=== PATIENT | female | born 1995 | race Caucasian/White ===

== ENCOUNTER 2019-02-17 11:27 | Emergency (ER) | payer OTHER ==
[~2019-02-17 11:27] MED LIST: Iopamidol 370 76% 100 ML VIAL ONE
[2019-02-17 12:35] LABS: #Lymphocytes 1.6 thou/uL (1.20-3.40); #Monocytes 0.5 thou/uL (0.11-0.59); #Neutrophils 5.2 thou/uL (1.40-6.50); %Basophils 0.1 % (0.0-1.0); %Eosinophils 0.3 % (0.0-10.0); %Lymphocytes 21.9 % (21.0-51.0); %Monocytes 7.3 % (0.0-10.0); %Neutrophils 70.4 % (42.0-75.0); Hemoglobin 11.3 g/dL (12.0-16.0); Mean Corpuscular HGB CONC 34.9 g/dL (32.0-36.0); Mean Corpuscular Volume 88.8 fL (78.0-98.0); Mean Platelet Volume 8.1 fL (7.4-10.4); Platelet Count 264 thou/uL (130-400); RBC Distribution Width 12.1 % (11.5-14.5); Red Blood Cell (RBC) Count 3.65 mill/uL (4.20-5.40); White Blood Cell (WBC) Count 7.4 thou/uL (4.8-10.8)
--- NOTE | 2019-02-17 12:46 | RAD ---
Exam: Chest one view HISTORY:Chest pain Comparison: None FINDINGS: Cardiac silhouette: Normal Aorta: Unremarkable Pulmonary vessels: Normal Costophrenic angles: Clear LUNGS: No masses or consolidation. Pneumothorax: None Osseous abnormalities: None IMPRESSION: No acute cardiopulmonary process.
[2019-02-17 12:57] LABS: ALT (SGPT) 19 U/L (8-55); AST (SGOT) 16 U/L (5-34); Albumin 3.7 g/dL (3.5-5.0); Alkaline Phosphatase 52 U/L (40-150); Anion Gap 12 mmol/L (10-20); BUN (Urea Nitrogen) 5 mg/dL (7.0-18.7); Bilirubin, Total 0.3 mg/dL (0.2-1.2); CK (CPK) 27 U/L (29-168); Calc. Creatinine Clearance 0 mL/min (70-130); Carbon Dioxide 20 mmol/L (22-29); Chloride 108 mmol/L (98-107); Estimated GFR-MDRD Greater than 90; Globulin 2.4 g/dL (2.4-3.5); Glucose 83 mg/dL (70-105); Lipase 17 U/L (8-78); Potassium 3.8 mmol/L (3.5-5.1); Protein, Total 6.1 g/dL (6.0-8.3); Sodium 136 mmol/L (136-145)
[2019-02-17 13:15] LABS: Bilirubin Negative (Negative); Blood, Urine Negative (Negative); Clarity Clear (Clear); Glucose, Urine (Dipstick) Normal (Negative); Leukocyte Negative Leu/uL (Negative); Nitrite Negative (Negative); Protein, Urine (Dipstick) 10 mg/dL (Neg-Trace)
--- NOTE | 2019-02-17 13:27 | CT ---
Exam: CT angiogram of the chest HISTORY: Hypertension. Tachycardia. Chest pain. COMPARISON: None TECHNIQUE: CT angiogram of the chest is performed in the axial plane. Three-dimensional reformatted i mages are submitted for interpretation FINDINGS: Mediastinum: No mass, lymphadenopathy or hematoma. HEART: Normal size. No significant pericardial fluid. Aorta: No aneurysm or dissection Upper solid abdominal viscera: No abnormality enhancement. Trachea and central bronchi: Patent Pleural spaces: No effusion Lung parenchyma: No masses or consolidation. Pneumothorax: None Osseous structures: No lytic or blastic lesions Pulmonary arteries: Adequate contrast opacification pulmonary arterial system to the level of the lob ar arteries. Limited evaluation the segmental and subsegmental arteries due to timing of contrast bolus. No filling defect to suggest pulmonary embolism IMPRESSION: 1. No evidence of pulmonary artery embolism to the level of the lobar arteries.
--- NOTE | 2019-02-18 13:44 | EKG ---
Test Reason : Blood Pressure : / mmHG Vent. Rate : 124 BPM Atrial Rate : 124 BPM P-R Int : 128 ms QRS Dur : 080 ms QT Int : 320 ms P-R-T Axes : 025 006 007 degrees QTc Int : 459 ms Sinus tachycardia Cannot rule out Anterior infarct , age undetermined Abnormal ECG Confirmed by SUKHDEV HEALY, MASOUD ([id number]), editorial cartoonist NAINA MAN ([id number]) on 02/18/2019 1:43:24 PM Referred By: Confirmed By:MASOUD SANTIZO MD
== END 2019-02-17 13:57 | disposition home or self-care (01) ==
LOC: ERS 11:27 → EDSTATUS 11:32 → ERS 13:57
DX: O99.89 Other specified diseases and conditions complicating pregnancy, childbirth and the puerperium (principal); R00.0 Tachycardia, unspecified; O99.282 Endocrine, nutritional and metabolic diseases complicating pregnancy, second trimester; E86.0 Dehydration; Z3A.23 23 weeks gestation of pregnancy
CPT/HCPCS: 36415; 71045; 71275; 80053; 81003; 82550; 83690; 84484; 85025; 85379; 93005; 96360; Q9967

== ENCOUNTER 2019-05-19 10:13 | Inpatient (IN) | payer OTHER ==
[2019-05-19] MEDS ORDERED: Bupivacaine 0.25% 10 ML VIAL ONE (13:11)
[2019-05-19] MEDS ORDERED: Sodium Chloride 0.9% (PF) 10 ML VIAL ONE (13:11)
[2019-05-19 18:44] VITALS: BMI 43.2
[2019-05-19] MEDS ORDERED: Promethazine HCl 25 MG/ML VIAL IM PRN (18:51)
[2019-05-19] MEDS ORDERED: Lidocaine 1% (PF) 30 ML VIAL SC PRN (18:51)
[2019-05-19] MEDS ORDERED: Butorphanol Tartrate 1 MG/ML VIAL SLOW IVP PRN (18:51)
[2019-05-19] MEDS ORDERED: Ibuprofen 800 MG TAB PO PRN (18:51)
[2019-05-19] MEDS ORDERED: hydrALAZINE 20 MG/ML VIAL SLOW IVP PRN (18:51)
[2019-05-19] MEDS ORDERED: Carboprost 250 MCG/ML AMP IM PRN (18:51)
[2019-05-19] MEDS ORDERED: NS / Oxytocin 40 units/1000ml 1,000 ML IV PRN (18:51)
[2019-05-19] MEDS ORDERED: Misoprostol 200 MCG TAB PR PRN (18:51)
[2019-05-19] MEDS ORDERED: Ondansetron PF 4 MG/2 ML Vial IVP PRN (18:51)
[2019-05-19] MEDS ORDERED: HYDROcodone/Acetaminophen 5/325 mg Tablet PO PRN ×2 (18:51)
[2019-05-19] MEDS ORDERED: Diphenoxylate HCl/Atropine Tablet PO PRN ×2 (18:51)
[2019-05-19 19:02] LABS: Hemoglobin 11.9 g/dL (12.0-16.0); Mean Corpuscular HGB CONC 35.4 g/dL (32.0-36.0); Mean Corpuscular Volume 87.4 fL (78.0-98.0); Mean Platelet Volume 8.2 fL (7.4-10.4); Platelet Count 271 thou/uL (130-400); RBC Distribution Width 13.6 % (11.5-14.5); Red Blood Cell (RBC) Count 3.84 mill/uL (4.20-5.40); White Blood Cell (WBC) Count 10.7 thou/uL (4.8-10.8)
[2019-05-19] MEDS: Misoprostol 100 MCG TAB PO SCH ×2 (19:30→23:00)
[2019-05-19 19:38] LABS: ALT (SGPT) 25 U/L (8-55); AST (SGOT) 17 U/L (5-34); Albumin 3.4 g/dL (3.5-5.0); Alkaline Phosphatase 113 U/L (40-110); Anion Gap 13 mmol/L (10-20); BUN (Urea Nitrogen) 8 mg/dL (7.0-18.7); Bilirubin, Total 0.2 mg/dL (0.2-1.2); Calc. Creatinine Clearance 269 mL/min (70-130); Calcium 9.1 mg/dL (7.8-10.44); Carbon Dioxide 20 mmol/L (22-29); Chloride 109 mmol/L (98-107); Estimated GFR-MDRD Greater than 90; Globulin 2.7 g/dL (2.4-3.5); Glucose 129 mg/dL (70-105); Potassium 4.2 mmol/L (3.5-5.1); Protein, Total 6.1 g/dL (6.0-8.3); Sodium 138 mmol/L (136-145)
[2019-05-19 19:39] LABS: Syphilis Antibody Nonreactive (Nonreactive); Syphilis Antibody Index 0.03 S/CO (<1.00 Non-Reactive)
[2019-05-19 19:40] LABS: HBSAg Index 0.16 S/CO (0-0.99); Hep B Surf Ag Non-Reactive S/CO (NonReactive)
[2019-05-20 08:51] LABS: Creatinine, Urine 110.92 mg/dL (47-110)
--- NOTE | 2019-05-20 10:38 | PDOC.LDHP ---
Labor and Delivery H&P Chief complaint: scheduled induction HPI: Here for scheduled IOL for GHTN. Blood pressures at home have been 150-160 and 90-100. In office 140/70s. Patient denies ZULETA, RUQ pain, and vision changes. Current gestational age (weeks): 37 Grav: 2 Para: 1 Current complications: gestational hypertension Current medications: none Allergies/Adverse Reactions: Allergies Allergy/AdvReac Type Severity Reaction Status Date / Time carboprost [From Hemabate] Allergy Mild Verified 05/21/19 13:54 Social history: none - Physical Exam Vital signs reviewed and normal: yes General: resting Lungs: nonlabored breathing Abdomen: gravid Extremeties: trace edema FHT: category 1 - Vaginal Exam cm dilated: 1 Effacement: 25% Station: -3 - OB Labs Blood type: A RH: positive Antibody Screen: negative HIV: negative RPR: negative HEPSAg: negative 1 hour GCT: negative GBS: negative Urine drug screen: negative Rubella: immune - Assessment L&D Assessment: medically indicated induction (for GHTN Cervical ripening with cytotec followed by balloon placement Pitocin for augmentation)
[2019-05-20] MEDS: NS w/ Oxytocin 10 units 500 ML IV SCH (11:23)
[2019-05-20] MEDS ORDERED: Acetaminophen 325 MG TAB PO PRN ×2 (13:13→20:30)
[2019-05-20] MEDS: Lactated Ringer's 1,000 ML IV SCH ×2 (16:07→20:20)
[2019-05-20] MEDS ORDERED: Fentanyl 4 mcg/Bup 0.1% Cadd 100 ML ONE (19:29)
[2019-05-20] MEDS ORDERED: Fentanyl 4 mcg/Bupivacaine 0.1% Cassette 100 ML EPIDURAL SCH (20:30)
[2019-05-20] MEDS ORDERED: Communication Order-Pharmacy FS SCH (20:30)
[2019-05-20] MEDS ORDERED: Ondansetron PF 4 MG/2 ML Vial IVP PRN (20:30)
[2019-05-20] MEDS ORDERED: Promethazine HCl 25 MG/ML VIAL IM PRN (20:30)
[2019-05-20] MEDS ORDERED: Lactated Ringer's 500 ML IV PRN (20:30)
[2019-05-20] MEDS ORDERED: ePHEDrine/0.9% NaCl/PF SYRINGE 50 mg/10 ml SLOW IVP PRN (20:30)
[2019-05-20] MEDS ORDERED: diphenhydrAMINE 50 MG/ML VIAL IVP PRN (20:30)
[2019-05-20] MEDS ORDERED: Naloxone HCl 0.4 mg/ml Vial IVP PRN ×2 (20:30)
[2019-05-21] MEDS: Lactated Ringer's 1,000 ML IV SCH ×2 (00:28→05:49)
[2019-05-21] MEDS ORDERED: Carboprost 250 MCG/ML AMP ONE (03:32)
[2019-05-21] MEDS ORDERED: Misoprostol 200 MCG TAB ONE (03:32)
[2019-05-21] MEDS ORDERED: Butorphanol Tartrate 1 MG/ML VIAL ONE ×2 (03:38→03:39)
--- NOTE | 2019-05-21 03:57 | PDOC.OPDEL ---
OB Operative/Delivery Note Delivery Dr/Surgeon: Eva Abbott CNM Assist: Dr. Betsy Bone Pre-Delivery Diagnosis: active labor, medically indicated induction Procedure/Post Delivery Dx: spontaneous vaginal delivery Weeks gestation: 37 Anesthesia: epidural - Findings A Sex: female Weight: 8 lb 5 oz - 1 min: 9 - 5 min: 9 - Additional Findings/Plan Placenta delivered: manual removal (I attempted a manual removal of the placenta and was unsuccessful. 2mg Stadol given for maternal comfort. Dr. Bone assisted to manually remove placenta) Repaired Obstetrical Laceration: none Estimated blood loss: 300mL Compilations/Other Findings: Retained placenta > 30 mins. Manual removal by Dr. Bone placenta to pathology. Hemabate given Post delivery plan: routine recovery (Ancef 2gm. Placenta to pathology)
[2019-05-21] MEDS ORDERED: CEFAZOLIN 2 GM in Premix Bag 1 BAG IVPB SCH (04:00)
[2019-05-21] MEDS: Misoprostol 100 MCG TAB PO SCH ×2 (05:48→05:49)
[2019-05-21] MEDS: NS w/ Oxytocin 10 units 500 ML IV SCH (05:50)
[2019-05-21] MEDS ORDERED: Benzocaine-Menthol 82.5 ML CAN TOP PRN (05:56)
[2019-05-21] MEDS ORDERED: Misoprostol 200 MCG TAB VAG PRN (05:56)
[2019-05-21] MEDS ORDERED: HYDROcodone/Acetaminophen 5/325 mg Tablet PO PRN ×2 (05:56)
[2019-05-21] MEDS ORDERED: hydrALAZINE 20 MG/ML VIAL SLOW IVP PRN (05:56)
[2019-05-21] MEDS ORDERED: Ondansetron PF 4 MG/2 ML Vial IVP PRN (05:56)
[2019-05-21] MEDS ORDERED: NS / Oxytocin 40 units/1000ml 1,000 ML IV SCH (05:56)
[2019-05-21] MEDS ORDERED: Adacel (T-DAP) 0.5 ML SYRINGE IM ONE (05:56)
[2019-05-21] MEDS ORDERED: Milk Of Magnesia 30 ML UDCUP PO PRN (05:56)
[2019-05-21] MEDS ORDERED: Bisacodyl 10 MG SUPP PR PRN (05:56)
[2019-05-21] MEDS ORDERED: Sodium Chloride 0.9% 10 ML ONE (07:55)
[2019-05-21] MEDS: Ibuprofen 800 MG TAB PO SCH ×3 (08:02→21:32)
[2019-05-21] MEDS: Docusate Calcium (SURFAK) 240 MG CAP PO SCH ×2 (08:02→21:33)
[2019-05-21] MEDS: Prenatal Vitamin 1 TAB PO SCH (08:02)
[2019-05-21] MEDS: Ferrous Sulfate 325 MG TAB PO SCH ×2 (08:04→15:08)
[2019-05-22 08:42] VITALS: BP 128/65; TEMP 97.8
[2019-05-22] MEDS: Ibuprofen 800 MG TAB PO SCH (08:51)
[2019-05-22] MEDS: Prenatal Vitamin 1 TAB PO SCH (08:51)
[2019-05-22] MEDS: Ferrous Sulfate 325 MG TAB PO SCH (08:52)
[2019-05-22] MEDS: Docusate Calcium (SURFAK) 240 MG CAP PO SCH (08:53)
== END 2019-05-22 12:33 | disposition home or self-care (01) | DRG 807 ==
LOC: L&D 18:01 → 3SW 05-21 06:47
PROVIDERS: ADMIT Obstetrics & Gynecology; ATTEND Obstetrics & Gynecology
PROC: 10907ZC Drainage of Amniotic Fluid, Therapeutic from Products of Conception, Via Natural or Artificial Opening (ICD-10-PCS; principal; 2019-05-20)
PROC: 10E0XZZ Delivery of Products of Conception, External Approach (ICD-10-PCS; 2019-05-20)
PROC: 3E033VJ Introduction of Other Hormone into Peripheral Vein, Percutaneous Approach (ICD-10-PCS; 2019-05-20)
DX: O13.4 Gestational [pregnancy-induced] hypertension without significant proteinuria, complicating childbirth (principal); Z37.0 Single live birth; Z3A.37 37 weeks gestation of pregnancy; O73.1 Retained portions of placenta and membranes, without hemorrhage
CPT/HCPCS: 51702; 80053; 82570; 84156; 85027; 86780; 86850; 86900; 86901; 87340; 88307; C1726; J0595; J0690; J2590; J3490; S0020

== ENCOUNTER 2019-06-17 15:26 | Observation (INO) | payer OTHER ==
[~2019-06-17 15:26] MED LIST changes: -Iopamidol 370 76% 100 ML VIAL ONE; +Iopamidol-370 76% 500 ML 1 ML ONE
[2019-06-17 16:16] LABS: Band 4 % (5-11); Eosinophils 1 % (0-10); Hemoglobin 14.6 g/dL (12.0-16.0); Lymphocytes 16 % (21-51); MDiff Complete? YES; Mean Corpuscular HGB CONC 34.5 g/dL (32.0-36.0); Mean Corpuscular Hemoglobin 30.5 pg (27.0-31.0); Mean Corpuscular Volume 88.4 fL (78.0-98.0); Mean Platelet Volume 8.6 fL (7.4-10.4); Monocytes 8 % (0-10); Neutrophil 70 % (42-75); Platelet Count 264 thou/uL (130-400); Platelet Morphology Comment Appears Adequate; RBC Distribution Width 12.4 % (11.5-14.5); RBC Morphology Normal; Reactive Lymphocytes 1 % (0-10)
[2019-06-17 16:22] LABS: ALT (SGPT) 74 U/L (8-55); AST (SGOT) 49 U/L (5-34); Albumin 4.3 g/dL (3.5-5.0); Alkaline Phosphatase 89 U/L (40-110); Anion Gap 17 mmol/L (10-20); BUN (Urea Nitrogen) 9 mg/dL (7.0-18.7); Bilirubin, Total 0.5 mg/dL (0.2-1.2); Calc. Creatinine Clearance 0 mL/min (70-130); Calcium 9.8 mg/dL (7.8-10.44); Carbon Dioxide 20 mmol/L (22-29); Chloride 103 mmol/L (98-107); Estimated GFR-MDRD 79; Globulin 3.5 g/dL (2.4-3.5); Glucose 102 mg/dL (70-105); Potassium 4.2 mmol/L (3.5-5.1); Protein, Total 7.8 g/dL (6.0-8.3); Sodium 136 mmol/L (136-145)
--- NOTE | 2019-06-17 16:31 | RAD ---
PORTABLE CHEST: 06/17/19 HISTORY: Chills and fever. Cough. COMPARISON: 02/17/19 study. The heart size and mediastinum are within normal limits. Lungs are clear of any definite infiltrative process. IMPRESSION: No active intrathoracic disease. POS: [facility]
[2019-06-17] MEDS ORDERED: Acetaminophen 500 MG TAB ONE (16:46)
[2019-06-17] MEDS ORDERED: Ibuprofen 200 MG TAB ONE (16:46)
[2019-06-17 17:18] LABS: Bacteria/HPF None Seen HPF (None Seen); Bilirubin Negative (Negative); Blood, Urine Negative (Negative); Clarity Clear (Clear); Glucose, Urine (Dipstick) Normal (Negative); Leukocyte 500 Leu/uL (Negative); Nitrite Negative (Negative); Protein, Urine (Dipstick) 30 mg/dL (Neg-Trace); RBC/HPF 0-3 HPF (0-3)
--- NOTE | 2019-06-17 17:18 | ULT ---
PELVIC ULTRASOUND: 06/17/19 HISTORY: Pelvic pain. Rule out retained produces of conception. Real time imaging of the pelvis was obtained both transabdominally as well as with an endovaginal pro be. These show a uterus measuring 10.6 cm in length. Endometrium does not appear thickened. Measures in the 4 mm range. Slightly indistinct but I see no retained products. The right ovary is well visualized. Shows small follicles. The left ovary is not seen. DOPPLER EVALUATION WITH SPECTRAL ANALYSIS: Normal flow is shown to the right ovary. IMPRESSION: No evidence for retained products. POS: [facility]
[2019-06-17] MEDS ORDERED: Cefepime 2 GM in Sodium Chloride 0.9% 100 ML IVPB ONE (17:30)
[2019-06-17 18:46] LABS: Bilirubin Negative (Negative); Blood, Urine 1+ (Negative); Clarity Clear (Clear); Glucose, Urine (Dipstick) Normal (Negative); Leukocyte 250 Leu/uL (Negative); Nitrite Negative (Negative); Protein, Urine (Dipstick) 30 mg/dL (Neg-Trace); Squamous Epithelial 0-3 HPF (0-3)
[2019-06-17 19:05] LABS: Bacteria/HPF 1+ HPF (None Seen)
[2019-06-17 19:06] LABS: Mucous/LPF 2+ LPF (<2+)
--- NOTE | 2019-06-17 19:24 | ULT ---
LEFT BREAST ULTRASOUND: 06/17/19 HISTORY: Left breast pain. Evaluation for mastitis. The area of pain was in the lateral aspect of the breast. Evaluation was performed from the 2 to 6 o' clock position. Shows no evidence of any fluid collections. Breast tissue appears dense. IMPRESSION: No signs of abscess. POS: [facility]
[2019-06-17] MEDS ORDERED: Cefepime 2 GM VIAL ONE (19:51)
[2019-06-17] MEDS ORDERED: HYDROcodone/Acetaminophen 5/325 mg Tablet PO PRN (20:43)
[2019-06-17] MEDS ORDERED: Senokot S 8.6-50 MG TAB PO PRN (20:43)
[2019-06-17] MEDS ORDERED: Ondansetron PF 4 MG/2 ML Vial IVP PRN (20:43)
[2019-06-17] MEDS ORDERED: Acetaminophen 325 MG TAB PO PRN (20:43)
[2019-06-17] MEDS ORDERED: Diabetic Tussin 200 MG/10 ML UDCUP PO PRN (20:46)
--- NOTE | 2019-06-17 20:49 | PRG ---
DATE OF SERVICE: 06/17/2019 TIME OF EVALUATION: The time of phone consult with the ER nurse practitioner was at 1945 hours. Please label this brief informal consultation by phone. This was a phone informal consult only Requesting consulting provider is the ER nurse practitioner. In brief, I was called regarding Ms. Guerra who is about 14 days and presents with a fever with a temperature of 101.8 and tachycardia. She delivered by [facility] from a vaginal delivery and did not require an episiotomy nor did she have any lacerations by the TRIMMING OPERATOR report. She now presents with nonspecific fever and nonlocalizing symptoms. Initially, the thought by the TRIMMING OPERATOR was that there could be possibly mastitis, but there is absence of breast tenderness, and there is no erythema. I have reviewed the case with the TRIMMING OPERATOR managing this patient. Here is the synopsis: Temperature of 101.8 with some tachycardia. Flu swab was negative. Uterine ultrasound reveals no retained products and the uterine exam/abdominal exam is nonspecific. While there is some left breast engorgement greater than the right side, there is no erythema or tenderness to touch according to the TRIMMING OPERATOR. Chest x- ray was negative. Cath UA showed 1+ bacteria and is concerning for possible UTI. Breast ultrasound did not reveal evidence of abscess. Blood cultures were drawn. The nurse practitioner asked if this is something that gynecology would admit. Based on nonspecific location of the fever, and no clinical signs of mastitis or metritis, I am not sure if this is a complication or some new process. This may be some other condition not yet identified. She does have a white blood cell count that is 20 with hematocrit of 42, raising the concern that this may be hemoconcentration to some degree. I have also reviewed her AST and ALT, which were slightly elevated with an AST of 49 and an ALT of 74. At this time, as there are no clinical findings according to the TRIMMING OPERATOR of mastitis or metritis, I have recommended that she could be admitted to Medicine with MARKET RISK MANAGER consult, if she does not improve with broad-spectrum antibiotics in 24 hours. Once again, I do not feel that this is a complication based on the information that I have reviewed with the TRIMMING OPERATOR, and we both agree that this is possibly some other process. We will be available to evaluate the patient if necessary for further eval. Job ID: [id number] [facility]ERSBrad
--- NOTE | 2019-06-17 21:13 | HP ---
PRESENTING COMPLAINT: Fever. HISTORY OF PRESENT ILLNESS: Ms. Mari Thayer is a 24-year-old female with no past medical history, who had a recent vaginal delivery 4 weeks ago, complicated with retained placenta, which was later removed. The patient presented because of fever since the last 3 days associated with headache and nausea, but no vomiting. She also admits to decreased p.o. intake. She states she has swelling and engorgement of the right breast since the last 2 weeks, but started to improve, but new engorgement of the left breast now. She admits to some cough with greenish sputum. She also has sick contact with her who also having rhinorrhea. She denies any other sick contacts. She denies any diarrhea or abdominal cramps. She denies any dysuria or flank pain. Also her thinks that she did have a Valenzuela catheter placed 3 weeks ago during the delivery. PAST MEDICAL HISTORY: None. SOCIAL HISTORY: The patient resides in a community with her spouse. No history of tobacco, alcohol, or illicit drug use. HOME MEDICATIONS: None. FAMILY HISTORY: Significant for diabetes in the parents. REVIEW OF SYSTEMS: All systems reviewed, x14 were negative except as mentioned above. PHYSICAL EXAMINATION: VITAL SIGNS: Blood pressure of 102/68, pulse of 91, respiratory rate of 18, temp elevated at 100.2. GENERAL: Obese young female, calm, not in any distress. HEENT: Head is atraumatic. Initially toxic looking, but appears better. Pupils equal, reactive to light. Anicteric. [place] conjunctivae. NECK: No JVD. No carotid bruit. No nasal congestion or erythema of the nasal bridge. RESPIRATORY: Good air entry. No crepitation. CARDIOVASCULAR: S1 and S2, rate and rhythm regular. GI: Abdomen full, soft. Bowel sounds positive. No suprapubic fullness. No CVA tenderness. EXTREMITIES: No calf tenderness. No pedal edema. NEUROLOGICAL: The patient is alert, oriented. Cranial nerves 2 through 12 grossly intact. BREASTS: Normal areola hyperpigmentation, but no overt erythema or area of tenderness on palpation of the breast. No axillary lymph nodes. LABORATORY DATA: Urinalysis shows greater than 500 leukocyte esterase, 4 to 6 wbc, no bacteria. WBC 20,000 with 4% bands, neutrophils 70, hemoglobin 14.6. Potassium 4.2, anion gap 17, BUN 9, creatinine 0.8. Lactic acid 0.9. AST and alkaline phosphatase normal. ALT normal. Albumin 4.3. IMAGING DATA: Chest x-ray shows no active intrathoracic disease. Pelvic ultrasound shows no endometrial retained products. Breast ultrasound shows normal dense breast, no abscess. However, personal review of the chest x-ray shows what looks like crowded lung rodrigez, but I cannot rule out right perihilar infiltrate. IMPRESSION: 1. Urinary tract infection. 2. Leukocytosis. 3. Resolving bilateral mastitis. 4. Possible right basal pneumonia. PLAN: We admit the patient to observation. We will manage the patient for the followin. Presumed right basal pneumonia and urinary tract infection. We will start antibiotics with Rocephin. We will follow urine culture as well as we will obtain sputum culture. Follow blood culture x2. We start antipyretics as needed. We do pain regimen with Tylenol and Motrin as needed. Prior to discharge, we need to select antibiotics that will allow for . 2. Mastitis-appears to be resolved. No clinical evidence at this time. 3. DVT prophylaxis, subcutaneous heparin. 4. Advance directives. The patient is full code. Job ID: [id number]
--- NOTE | 2019-06-17 21:56 | CT ---
CT Chest W Con HISTORY: Fever. Evaluation for pneumonia. Pain on left side. COMPARISON: None. FINDINGS: The lungs are clear of any infiltrative process. There is minimal atelectatic changes in th e lung bases. There is no significant mediastinal hilar or axillary lymphadenopathy. The breast tissue is very dens e. No signs of any abscess collection. Visualized liver parenchyma shows no focal findings. The right and left adrenal glands are normal. IMPRESSION: No evidence of pneumonia.
[2019-06-17] MEDS ORDERED: cefTRIAXone\\ROCEPHIN 2 GM in Sodium Chloride 0.9% 100 ML IVPB SCH (22:00)
[2019-06-17] MEDS: Sodium Chloride 0.9% 1,000 ML IV SCH (23:30)
[2019-06-17] MEDS: Famotidine 20 MG TAB PO SCH (23:31)
[2019-06-17] MEDS: guaiFENesin ER 600 MG TAB PO SCH (23:31)
[2019-06-17 23:53] VITALS: BMI 38.2
[2019-06-18] MEDS: Sodium Chloride 0.9% 1,000 ML IV SCH (03:46)
[2019-06-18 06:03] LABS: #Eosinphils 0.3 thou/uL (0.0-0.7); #Lymphocytes 2.3 thou/uL (1.20-3.40); #Monocytes 1.1 thou/uL (0.11-0.59); #Neutrophils 11.8 thou/uL (1.40-6.50); %Basophils 0.2 % (0.0-1.0); %Eosinophils 1.8 % (0.0-10.0); %Lymphocytes 14.9 % (21.0-51.0); %Monocytes 7.1 % (0.0-10.0); Hemoglobin 13.2 g/dL (12.0-16.0); Mean Corpuscular Hemoglobin 30.2 pg (27.0-31.0); Mean Corpuscular Volume 88.9 fL (78.0-98.0); Mean Platelet Volume 8.9 fL (7.4-10.4); Platelet Count 218 thou/uL (130-400); RBC Distribution Width 12.4 % (11.5-14.5); Red Blood Cell (RBC) Count 4.37 mill/uL (4.20-5.40); White Blood Cell (WBC) Count 15.5 thou/uL (4.8-10.8)
[2019-06-18 06:18] LABS: Anion Gap 12 mmol/L (10-20); BUN (Urea Nitrogen) 7 mg/dL (7.0-18.7); Calc. Creatinine Clearance 234 mL/min (70-130); Calcium 8.7 mg/dL (7.8-10.44); Carbon Dioxide 22 mmol/L (22-29); Chloride 110 mmol/L (98-107); Estimated GFR-MDRD Greater than 90; Glucose 96 mg/dL (70-105); Potassium 4.1 mmol/L (3.5-5.1); Sodium 140 mmol/L (136-145)
[2019-06-18 07:43] VITALS: TEMP 97.9
[2019-06-18] MEDS ORDERED: Enoxaparin Sodium 40 MG/0.4 ML SYRINGE SC SCH (09:00)
[2019-06-18] MEDS: Famotidine 20 MG TAB PO SCH (09:02)
[2019-06-18] MEDS: guaiFENesin ER 600 MG TAB PO SCH (09:02)
[2019-06-18] MEDS ORDERED: Cefdinir 300 MG CAP PO SCH (10:45)
[2019-06-18 12:04] VITALS: BP 137/80
--- NOTE | 2019-06-18 20:35 | DIS ---
DATE OF ADMISSION: 06/17/2019 DATE OF DISCHARGE: 06/18/2019 DISCHARGE DIAGNOSES: 1. Sepsis. 2. Urinary tract infection. 3. Resolving bilateral mastitis. 4. Four weeks post delivery state. 5. Bilateral basal atelectasis. 6. Possible pneumonia. CONSULT: Agricultural Extension Officer and gynecology. HOSPITAL COURSE: A 24-year-old female 4 weeks post delivery, who was admitted due to acute onset of urinary urgency and incontinence associated with fever, cough with greenish yellow sputum as well as headache and nausea. The patient recently had a breast engorgement, which has improved. On presentation, the patient was found to be tachycardic, febrile, and tachypneic. Impression of sepsis due to urinary tract infection with or without pneumonia was made and the patient was started on broad-spectrum antibiotic therapy. Overnight symptoms markedly improved and urinary incontinence and urgency resolved. Evaluation with chest x-ray showed bibasilar atelectasis with no obvious consolidation. During that, the patient has a 4-year-old baby and fever with tachypnea, tachycardia, and systemic inflammatory response has subsided. The patient was discharged home to complete oral antibiotics. She however was told to come to the emergency room should symptoms recall. PHYSICAL EXAMINATION: VITAL SIGNS: Temperature 97.8, pulse 88, respiratory rate 18, SpO2 of 99% on room air, blood pressure is 137/80. GENERAL: Obese female, in no distress. Afebrile. Anicteric. Acyanotic. HEENT: Normocephalic, atraumatic. Oral mucosa is moist. CARDIOVASCULAR: Regular rhythm and rate with normal heart sounds 1 and 2. RESPIRATORY: Good air entry bilaterally with no crackle or rhonchi or use of accessory muscles. GI: Full, soft, nontender, nondistended with normal bowel sounds. EXTREMITIES: Grossly normal looking, atraumatic with no edema or erythema. DIRECTOR FRAUD: Conscious, alert, oriented x3 with appropriate mental status. DISCHARGE CONDITION: Improved. DISCHARGE DISPOSITION: Home. FOLLOWUP: 1. The patient is to follow up with the CHAIN PULLER. 2. She was also instructed to follow up with the primary care physician in 7 days. DISCHARGE MEDICATIONS: 1. Acetaminophen 650 mg q.4 p.r.n. for fever and pain. 2. Azithromycin 500 mg p.o. daily for 3 days. 3. Omnicef 300 mg p.o. daily for 7 days. Job ID: [id number]
== END 2019-06-18 13:00 | disposition home or self-care (01) ==
LOC: ERS 15:26 → SJJU 20:47
PROVIDERS: ADMIT Internal Medicine; ATTEND Internal Medicine
DX: A41.9 Sepsis, unspecified organism (principal); N39.0 Urinary tract infection, site not specified; J98.11 Atelectasis
CPT/HCPCS: 36415; 36416; 51701; 71045; 71260; 76856; 80048; 80053; 81003; 81015; 83605; 85025; 87040; 87086; 87804; 96361; 96365; 96366; 96367; 96372; A4353; G0378; J0692; J0696; J1650; J3370; J3490; J7050; Q9967